=== PATIENT | female | born 1990 | race Two or more races ===

== ENCOUNTER 2020-11-06 08:43 | Emergency (ER) | payer OTHER ==
[~2020-11-06] VITALS: Ht 160 cm; Wt 60.3 kg
[2020-11-06] MEDS ORDERED: ZYRTEC10 MG PO (08:49)
[2020-11-06] MEDS ORDERED: NORFLEX100MG PO (13:02)
[2020-11-06] MEDS ORDERED: KETO10TA2 PO (13:02)
== END 2020-11-06 13:18 | disposition home or self-care (01) ==
LOC: ER 08:43
DX: B34.9 Viral infection, unspecified (principal); Z11.52 Encounter for screening for COVID-19